=== PATIENT | female | born 1940 | race Caucasian/White ===

== ENCOUNTER 2021-01-29 10:43 | Emergency (ER) | payer MEDICARE, BC ==
--- NOTE | 2021-01-29 11:23 | EDM.PDOC ---
ED HPI GENERAL MEDICAL PROBLEM - General Chief Complaint: Neuro Symptoms/Deficits Stated Complaint: FELL 3 DAYS AGO/ FACIAL SWELLING NUMBNESS/BRUISING Time Seen by Provider: 01/29/21 11:05 Source of Information: Reports: Patient, RN Notes Reviewed History Limitations: Reports: No Limitations - History of Present Illness INITIAL COMMENTS - FREE TEXT/NARRATIVE: Patient is an 80-year-old female presenting to the emergency department with complaints of pain, swelling, and numbness to her left jaw as well as a left- sided headache. She reports that Sunday evening, she was unable to sleep so she went outside to smoke a cigarette. While there, she tripped and fell. Reports she hit the left side of her face/jaw on a picnic table. She states that she did not hit her head or lose consciousness. Since that time, she is been having pain to the left side of her face. This morning she had difficulty opening her jaw and states it is quite painful to attempt to do so. She also has a left-sided headache which is new for her. She denies any dizziness or vision changes. She is not on blood thinners. She is had no nausea or vomiting. Headache Pain Score (Numeric/FACES): 6 - Related Data Allergies Allergy/AdvReac Type Severity Reaction Status Date / Time codeine Allergy Change Verified 01/29/21 10:59 Mental Status prednisone Allergy Swollen Verified 01/29/21 10:59 Eyes Home Meds: Home Meds Acetaminophen 500 mg PO DAILY 01/29/21 [History] Albuterol Sulfate [Albuterol Sulfate HFA] 1 puff INH DAILY 01/29/21 [History] Cholecalciferol (Vitamin D3) [Vitamin D3] 1 tab PO DAILY 01/29/21 [History] Clobetasol [Clobetasol 0.05%] 1 appful TOP DAILY 01/29/21 [History] Colchicine/Probenecid [Probenecid-Colchicine] 1 tab PO DAILY 01/29/21 [History] FLUoxetine [PROzac] 10 mg PO DAILY 01/29/21 [History] Levothyroxine [Synthroid] 88 mcg PO DAILY 01/29/21 [History] Omeprazole 20 mg PO DAILY 01/29/21 [History] Rosuvastatin [Crestor] 5 mg PO DAILY 01/29/21 [History] diphenhydrAMINE HCL [Benadryl] 25 mg PO DAILY 01/29/21 [History] Past Medical History HEENT History: Reports: Cataract, Other (See Below) Other HEENT History: dentures Cardiovascular History: Reports: High Cholesterol Respiratory History: Reports: Asthma, COPD ENGINEERING SPECIALIST TECHNICIAN History: Reports: Other (See Below) Other ENGINEERING SPECIALIST TECHNICIAN History: ovarian cyst Musculoskeletal History: Reports: Other (See Below) Other Musculoskeletal History: r knee surgery Endocrine/Metabolic History: Reports: Other (See Below) Other Endocrine/Metabolic History: parathyroid surgery - Past Surgical History GI Surgical History: Reports: Appendectomy Social & Family History - Tobacco Use Tobacco Use Status *Q: Current Every Day Tobacco User Years of Tobacco use: 60 Packs/Tins Daily: 0.4 - Caffeine Use Caffeine Use: Reports: Coffee, Tea - Alcohol Use Days Per Week of Alcohol Use: 2 Number of Drinks Per Day: 1 Total Drinks Per Week: 2 - Recreational Drug Use Recreational Drug Use: No ED ROS GENERAL - Review of Systems Review Of Systems: Comprehensive ROS is negative, except as noted in HPI. ED EXAM, GENERAL - Physical Exam Exam: See Below General Appearance: Alert, WD/WN, No Apparent Distress Eye Exam: Bilateral Eye: PERRL Throat/Mouth: Normal Inspection, Normal Lips, Normal Teeth, Normal Gums, Normal Oropharynx, Normal Voice, No Airway Compromise Head: Facial Swelling (Overlying the left temporomandibular joint.), Facial Tenderness (Left temporomandibular joint), Other (Difficulty completely opening mouth due to pain in left temporomandibular joint.) Respiratory/Chest: No Respiratory Distress, Lungs Clear, Normal Breath Sounds, No Accessory Muscle Use, Chest Non-Tender Cardiovascular: Normal Peripheral Pulses, Regular Rate, Rhythm, No Edema, No Gallop, No JVD, No Murmur, No Rub Neurological: Alert, Oriented, CN II-XII Intact, Normal Cognition, Normal Gait, Normal Reflexes, No Motor/Sensory Deficits Psychiatric: Normal Affect, Normal Mood Skin Exam: Warm, Dry, Intact, Normal Color, No Rash Course - Vital Signs Last Recorded V/S: Last Vital Signs Temp 97.5 F 01/29/21 10:56 Pulse 83 01/29/21 10:56 Resp 18 01/29/21 10:56 BP 149/89 H 01/29/21 10:56 Pulse Ox 93 L 01/29/21 10:56 - Re-Assessments/Exams Free Text/Narrative Re-Assessment/Exam: She is an 80-year-old female presenting to the emergency department with complaints of left-sided headache as well as pain and swelling to her left jaw. Reports that she fell on Sunday and hit the side of her face on a picnic table. She did not hit her head or lose consciousness. Denies any vision changes, dizziness, nausea or vomiting. She is not on blood thinners. On exam, neurologic exam is normal. She does have tenderness and swelling over her left temporomandibular joint. There is some faint ecchymosis in this area as well. I have ordered head CT as well as maxillofacial CT. 01/29/21 12:21 CT of the head shows mild atrophy and nonspecific chronic white matter change. No acute intracranial injury or fractures present. Maxillofacial CT shows no acute facial fractures. Discussed with patient that she is suffering from a contusion to the left side of her face. Recommend intermittent icing as well as Tylenol or ibuprofen as needed for discomfort. Discussed return precautions. Discharge instructions as documented. Departure - Departure Time of Disposition: 12:21 Disposition: Home, Self-Care 01 Condition: Good Clinical Impression: Contusion of mandibular joint area Qualifiers: Encounter type: initial encounter Qualified Code(s): S00.83XA - Contusion of other part of head, initial encounter - Discharge Information *PRESCRIPTION DRUG MONITORING PROGRAM REVIEWED*: No *COPY OF PRESCRIPTION DRUG MONITORING REPORT IN PATIENT MALVIN: No Instructions: Jaw Contusion Referrals: Santa Berrios NP [Primary Care Provider] - Forms: ED Department Discharge Additional Instructions: You were seen in the emergency department today for pain and swelling to your left jaw as well as a headache. CT scan was done of both your head and your facial bones and found to be normal. There is no bleeding in your brain and you have not fractured your jaw. You are suffering from a contusion (bruise) to your left jaw. Recommend icing for 20 minutes every 2 hours. Do not apply ice directly to the skin. You may continue use Tylenol or ibuprofen as needed for discomfort. If you fail to have improvement by Sunday, recommend follow-up in the clinic. Return to ER for any new or worsening symptoms. Sepsis Event Note (ED) - Evaluation Sepsis Screening Result: No Definite Risk
--- NOTE | 2021-01-30 09:27 | CT ---
Head CT Technique: Multiple axial sections through the brain were obtained. Comparison: No prior intracranial imaging is available. Findings: Ventricles along with basal cisterns and sulci over the convexities are mildly prominent. Mild diminished density is seen within the periventricular white matter compatible with mild small vessel ischemic demyelination change. No other abnormal parenchymal densities are seen. No evidence of intracranial hemorrhage. No midline shift or mass-effect is seen. Bone window settings were reviewed. No acute calvarial abnormality is seen. Visualized mastoid sinuses and paranasal sinuses show nothing acute. Atherosclerotic calcification is seen within the carotid siphon. Impression: 1. Senescent change as noted above. 2. Nothing acute is appreciated on noncontrast head CT study. Diagnostic code #2 I agree with preliminary report from [facility], finalized on 01/29/21, 1:08 PM CDT, code 1
--- NOTE | 2021-01-30 09:42 | CT ---
CT facial bones Technique: Multiple axial sections through the facial bones were obtained. Reconstructed coronal and sagittal images were obtained. Comparison: No prior facial bone study is available. Findings: Minimal mucosal thickening is seen within the ethmoid sinuses. Paranasal sinuses are otherwise clear. Atherosclerotic calcification is seen within the carotid siphon. Mastoid sinuses show nothing acute. Right and left globes are symmetric. Mild degenerative change is noted within the temporomandibular joints. Degenerative change is partially seen throughout the cervical spine. No acute facial bone fracture is seen. Impression: 1. Degenerative change as noted above. 2. No acute fracture is seen on CT study of the facial bones. Diagnostic code #2 I agree with preliminary report from [facility], finalized on 01/29/21, 1:09 PM CDT, code 1
== END 2021-01-29 12:38 | disposition home or self-care (01) ==
LOC: JD.ED 10:43
DX: S00.83XA Contusion of other part of head, initial encounter (principal); E78.00 Pure hypercholesterolemia, unspecified; J44.9 Chronic obstructive pulmonary disease, unspecified; F17.210 Nicotine dependence, cigarettes, uncomplicated; Z79.899 Other long term (current) drug therapy; Z88.5 Allergy status to narcotic agent; Z88.8 Allergy status to other drugs, medicaments and biological substances; W01.198A Fall on same level from slipping, tripping and stumbling with subsequent striking against other object, initial encounter
CPT/HCPCS: 70450; 70450-26; 70486; 70486-26; 99284-25